=== PATIENT | male | born 1990 | race Asian ===

== ENCOUNTER → 2020-03-19 | Outpatient (CLI) | payer OTHER | LOC: COL.RAD 10:40 | DX: N50.0 Atrophy of testis (principal); N50.9 Disorder of male genital organs, unspecified ==

== ENCOUNTER → 2020-07-28 | Outpatient (CLI) | payer OTHER | LOC: COL.RAD 08:16 | DX: C62.90 Malignant neoplasm of unspecified testis, unspecified whether descended or undescended (principal); K76.9 Liver disease, unspecified | CPT/HCPCS: Q9967 ==

== ENCOUNTER 2021-04-20 07:08 | Day surgery (SDC) | payer BC ==
[~2021-04-20] VITALS: Ht 185.4 cm; Wt 82.0 kg
[2021-04-20] MEDS ORDERED: VITAMINC1000TA (07:43)
[2021-04-20] MEDS ORDERED: VITAMIN D31000 I1 PO (07:43)
[2021-04-20 07:45] VITALS: BP 126/79; PULSE 73; TEMP 97.6
[2021-04-20] MEDS ORDERED: [UNRECOGNIZED DRUG - OTHER] PO (07:45)
[2021-04-20 08:58] VITALS: BP 104/67; PULSE 67; TEMP 96.8
--- NOTE | 2021-04-20 08:58 | NUR ---
Pt returned to [facility] via cart. Drowsy, but oriented. Postop vitals started. juice and jello provided. Denies discomfort. Will continue to monitor.
[2021-04-20 09:15] VITALS: BP 112/74; PULSE 58
--- NOTE | 2021-04-20 09:15 | NUR ---
Pt sitting up in chair, alert and oriented. Tolerating food and drink well. in to speak with pt at [id number].
[2021-04-20 09:30] VITALS: BP 112/76; PULSE 62
--- NOTE | 2021-04-20 09:45 | NUR ---
Transported pt via wheelchair to personal vehicle accompanied by .
--- NOTE | 2021-04-20 11:59 | NUR ---
Patient sitting up in chair, alert and oriented. Vital signs stable. Reviewed discharge instructions, verbalized understanding. D/C IV with no complications. Instructed to dress and open door when ready for transport.
== END 2021-04-20 09:45 | disposition home or self-care (01) ==
LOC: SDCO 07:08
DX: K29.50 Unspecified chronic gastritis without bleeding (principal); K31.7 Polyp of stomach and duodenum; K92.1 Melena; K59.00 Constipation, unspecified; K64.0 First degree hemorrhoids; R19.7 Diarrhea, unspecified; Z20.822 Contact with and (suspected) exposure to COVID-19; Z83.79 Family history of other diseases of the digestive system
CPT/HCPCS: J2704; J7030